=== PATIENT | male | born 1985 | race Hispanic/Latino ===

== ENCOUNTER 2017-11-20 19:00 | Emergency (ER) | payer SELFPAY ==
[2017-11-20] MEDS ORDERED: FAMOTIDINE 20 MG/2 ML VIAL IV ONE (19:31)
[2017-11-20 19:48] LABS: Absolute Lymphocytes (CBC) 2.9 K/uL (0.7-4.9); Absolute Monocytes 0.8 K/uL (0.1-1.3); Absolute Neutrophil 5.9 K/uL (1.8-8.0); Basophils % 0.8 % (0-1.3); Eosinophils % 2.5 % (0-4.4); Hematocrit 46.7 % (39.6-49.0); Lymphocytes % 29.3 % (15.3-44.8); MCH 31.1 pg (27.0-35.0); MCV 89.9 fL (80-100); MPV 7.9 fL (7.6-11.3); Monocytes % 7.9 % (3.3-12.3)
[2017-11-20 19:58] LABS: Protime INR 0.93
[2017-11-20 20:16] LABS: Albumin 3.8 g/dL (3.4-5.0); Bilirubin Direct 0.1 mg/dL (0-0.2); Bilirubin Total 0.4 mg/dL (0.2-1.0); Magnesium 2.2 mg/dL (1.8-2.4); Potassium 3.6 mmol/L (3.5-5.1); Protein, Total 7.6 g/dL (6.4-8.2)
--- NOTE | 2017-11-20 20:37 | ER ---
Nurse's Notes [facility] Name: Brian Zuniga Jr Age: 32 yrs Sex: Male : 1985 Arrival Date: 11/20/2017 Time: 19:05 Bed 7 Private MD: Out, [facility] Diagnosis: Chest pain, unspecified Presentation: 11/20 19:16 Presenting complaint: Patient states: he has been having int CP x 3 days. States, "My aa1 girlfriend is and I've been having the vomiting with her and I'm not sure if it's from that or not.". Transition of care: patient was not received from another setting of care. Onset of symptoms was November 18, 2017. Risk Assessment: Do you want to hurt yourself or someone else? Patient reports no desire to harm self or others. Initial Sepsis Screen: Does the patient meet any 2 criteria? No. Patient's initial sepsis screen is negative. Does the patient have a suspected source of infection? No. Patient's initial sepsis screen is negative. Care prior to arrival: None. 19:16 Method Of Arrival: Ambulatory aa1 19:16 Acuity: MARTY 3 aa1 Historical: - Allergies: 19:18 No Known Allergies; aa1 - Home Meds: 19:18 None [Active]; aa1 - PMHx: 19:18 None; aa1 - PSHx: 19:18 None; aa1 - Immunization history:: Flu vaccine is not up to date. - Social history:: Smoking status: Patient uses tobacco products, smokes one-half pack cigarettes per day. - Ebola Screening: : No symptoms or risks identified at this time. Screenin:19 Abuse screen: Denies threats or abuse. Denies injuries from another. Nutritional aa1 screening: No deficits noted. Tuberculosis screening: No symptoms or risk factors identified. Fall Risk None identified. Assessment: 19:19 General: Appears in no apparent distress. comfortable, Behavior is calm, cooperative, aa1 appropriate for age. Pain: Complains of pain in chest Pain does not radiate. Pain currently is 0 out of 10 on a pain scale. at worst was 5 out of 10 on a pain scale. Quality of pain is described as heavy, Pain began 2-3 days ago. Is intermittent. Neuro: Level of Consciousness is awake, alert, obeys commands, Oriented to person, place, time, situation, Moves all extremities. Full function Gait is steady. Cardiovascular: Heart tones S1 S2 present Rhythm is regular. Cardiovascular: Reports chest pain, vomiting, Denies diaphoresis, lightheadedness, palpitations, shortness of breath, Capillary refill < 3 seconds Clubbing of nail beds is absent JVD is absent Patient's skin is warm and dry. Chest pain is described as vague, quality is heaviness, is located in anterior chest wall episodes are intermittent. Respiratory: Airway is patent Respiratory effort is even, unlabored, Respiratory pattern is regular, symmetrical. GI: Abd is soft and non tender X 4 quads. Reports nausea, vomiting. : No signs and/or symptoms were reported regarding the genitourinary system. EENT: No signs and/or symptoms were reported regarding the EENT system. Derm: Skin is intact, is healthy with good turgor, Skin is pink, warm \\T\\ dry. 20:55 Reassessment: Patient and/or family updated on plan of care and expected duration. Pain ea level reassessed. Patient is alert, oriented x 3, equal unlabored respirations, skin warm/dry/pink. Discharge instructions given to patient, verbalized the understanding of instruction. Patient denies pain at this time. Patient states feeling better. Patient states symptoms have improved. Vital Signs: 19:18 BP 155 / 109; Pulse 97; Resp 18; Temp 98.1; Pulse Ox 99% on R/A; Weight 81.19 kg; aa1 Height 5 ft. 11 in. (180.34 cm); Pain 0/10; 19:43 BP 140 / 92; Pulse 91; Resp 16; Pulse Ox 97% on R/A; aa1 20:30 BP 122 / 82; Pulse 88; Resp 18; Temp 98; Pulse Ox 100% on R/A; Pain 0/10; ea 19:18 Body Mass Index 24.97 (81.19 kg, 180.34 cm) aa1 ED Course: 19:05 Patient arrived in ED. sb2 19:06 Out, [facility] is Private Physician. sb2 19:10 Aj Dominguez NP is PHCP. pm1 19:11 Leon Meraz MD is Attending Physician. pm1 19:16 Amanda Hassan RN is Primary Nurse. aa1 19:18 Triage completed. aa1 19:18 Arm band placed on right wrist. Patient placed in an exam room, on a stretcher. aa1 19:19 Patient has correct armband on for positive identification. Placed in gown. Bed in low aa1 position. Call light in reach. groundwater monitoring technician on. Pulse ox on. NIBP on. 19:19 EKG done, by ED staff, reviewed by Leon Meraz MD. Patient maintains SpO2 saturation aa1 greater than 95% on room air. 19:40 Inserted saline lock: 20 gauge in right antecubital area, using aseptic technique. mw2 Blood collected. 19:42 X-ray completed. Portable x-ray completed in exam room. Patient tolerated procedure mh1 well. 19:42 XRAY Chest (1 view) In Process Unspecified. EDMS 20:54 No provider procedures requiring assistance completed. IV discontinued, intact, ea bleeding controlled, No redness/swelling at site. Pressure dressing applied. Administered Medications: 19:43 Drug: Pepcid 20 mg Route: IVP; Site: right antecubital; aa1 20:39 Follow up: Response: No adverse reaction ea Outcome: 20:36 Discharge ordered by MD. pm1 20:55 Discharged to home ambulatory. ea 20:55 Condition: improved 20:55 Discharge instructions given to patient, Instructed on discharge instructions, follow up and referral plans. medication usage, Demonstrated understanding of instructions, follow-up care, medications. 20:57 Patient left the ED. ea Signatures: Dispatcher [employer] EDMS Amanda Hassan RN RN aa1 Heide Muñoz 1 Aj Dominguez, JOSIAS PRODUCTION DRILLING MACHINE OPERATOR pm1 Nancy Hernandez RN RN ea Billeau, Sheri 2 Konrad Gandhi mw2
--- NOTE | 2017-11-20 20:37 | EDPHYS ---
Physician Documentation [facility] Name: Brian Zuniga Jr Age: 32 yrs Sex: Male : 1985 Arrival Date: 11/20/2017 Time: 19:05 Bed 7 Private MD: Out, [facility] ED Physician Leon Meraz HPI: 11/20 20:00 This 32 yrs old Male presents to ER via Ambulatory with complaints of Chest pm1 Pain. 20:00 The patient or guardian reports chest pain that is located primarily in the epigastric pm1 area. The pain does not radiate. Associated signs and symptoms: Pertinent positives: nausea, vomiting, Pertinent negatives: abdominal pain, cough, dizziness, headache, shortness of breath. The chest pain is described as burning. Duration: The patient or guardian reports a single episode, that is still ongoing. Modifying factors: The symptoms are alleviated by nothing. the symptoms are aggravated by eating. Severity of pain: in the emergency department the pain is unchanged. The patient has not experienced similar symptoms in the past. The patient has not recently seen a physician. Patient with onset of chest pain 2 days ago. Patient's girlfriend is and he feels that he is having symptahy. Historical: - Allergies: 19:18 No Known Allergies; aa1 - Home Meds: 19:18 None [Active]; aa1 - PMHx: 19:18 None; aa1 - PSHx: 19:18 None; aa1 - Immunization history:: Flu vaccine is not up to date. - Social history:: Smoking status: Patient uses tobacco products, smokes one-half pack cigarettes per day. - Ebola Screening: : No symptoms or risks identified at this time. ROS: 20:00 Constitutional: Negative for fever, chills, and weight loss, Eyes: Negative for injury, pm1 pain, redness, and discharge, ENT: Negative for injury, pain, and discharge, Neck: Negative for injury, pain, and swelling, Respiratory: Negative for shortness of breath, cough, wheezing, and pleuritic chest pain. 20:00 Abdomen/GI: Negative for abdominal pain, nausea, vomiting, diarrhea, and constipation, Back: Negative for injury and pain, MS/Extremity: Negative for injury and deformity, Skin: Negative for injury, rash, and discoloration, Neuro: Negative for headache, weakness, numbness, tingling, and seizure. 20:00 Cardiovascular: Positive for chest pain, Negative for edema, orthopnea, palpitations. Exam: 20:00 Constitutional: This is a well developed, well nourished patient who is awake, alert, pm1 and in no acute distress. Head/Face: Normocephalic, atraumatic. Eyes: Pupils equal round and reactive to light, extra-ocular motions intact. Lids and lashes normal. Conjunctiva and sclera are non-icteric and not injected. Cornea within normal limits. Periorbital areas with no swelling, redness, or edema. ENT: Nares patent. No nasal discharge, no septal abnormalities noted. Tympanic membranes are normal and external auditory canals are clear. Oropharynx with no redness, swelling, or masses, exudates, or evidence of obstruction, uvula midline. Mucous membranes moist. Neck: Trachea midline, no thyromegaly or masses palpated, and no cervical lymphadenopathy. Supple, full range of motion without nuchal rigidity, or vertebral point tenderness. No Meningismus. Chest/axilla: Normal chest wall appearance and motion. Nontender with no deformity. No lesions are appreciated. Cardiovascular: Regular rate and rhythm with a normal S1 and S2. No gallops, murmurs, or rubs. Normal PMI, no JVD. No pulse deficits. Respiratory: Lungs have equal breath sounds bilaterally, clear to auscultation and percussion. No rales, rhonchi or wheezes noted. No increased work of breathing, no retractions or nasal flaring. Abdomen/GI: Soft, non-tender, with normal bowel sounds. No distension or tympany. No guarding or rebound. No evidence of tenderness throughout. Back: No spinal tenderness. No costovertebral tenderness. Full range of motion. Skin: Warm, dry with normal turgor. Normal color with no rashes, no lesions, and no evidence of cellulitis. MS/ Extremity: Pulses equal, no cyanosis. Neurovascular intact. Full, normal range of motion. 20:00 Neuro: Orientation: is normal, Motor: moves all fours, strength is normal, Sensation: is normal, no obvious gross deficits, Gait: is steady, at a normal pace, without difficulty. Vital Signs: 19:18 BP 155 / 109; Pulse 97; Resp 18; Temp 98.1; Pulse Ox 99% on R/A; Weight 81.19 kg; aa1 Height 5 ft. 11 in. (180.34 cm); Pain 0/10; 19:43 BP 140 / 92; Pulse 91; Resp 16; Pulse Ox 97% on R/A; aa1 20:30 BP 122 / 82; Pulse 88; Resp 18; Temp 98; Pulse Ox 100% on R/A; Pain 0/10; ea 19:18 Body Mass Index 24.97 (81.19 kg, 180.34 cm) aa1 MDM: 19:11 Patient medically screened. pm1 20:35 Data reviewed: vital signs. Data interpreted: Pulse oximetry: on room air is 97 %. pm1 Interpretation: normal. Counseling: I had a detailed discussion with the patient and/or guardian regarding: the historical points, exam findings, and any diagnostic results supporting the discharge/admit diagnosis, lab results, radiology results, the need for outpatient follow up, to return to the emergency department if symptoms worsen or persist or if there are any questions or concerns that arise at home. 11/20 19:16 Order name: Basic Metabolic Panel; Complete Time: 20:33 pm11/20 19:16 Order name: CBC with Diff; Complete Time: 20:33 pm11/20 19:16 Order name: LFT's; Complete Time: 20:33 pm11/20 19:16 Order name: Magnesium; Complete Time: 20:33 pm11/20 19:16 Order name: PT-INR; Complete Time: 20:33 pm11/20 19:16 Order name: Ptt, Activated; Complete Time: 20:33 pm11/20 19:16 Order name: Troponin (emerg Dept Use Only); Complete Time: 20:33 pm11/20 19:16 Order name: XRAY Chest (1 view); Complete Time: 20:54 pm1 11/20 19:16 Order name: EKG; Complete Time: 19:16 pm11/20 19:16 Order name: Cardiac monitoring; Complete Time: 19:23 pm11/20 19:16 Order name: EKG - Nurse/Tech; Complete Time: 19:23 pm11/20 19:16 Order name: IV Saline Lock; Complete Time: 19:25 pm11/20 19:16 Order name: Labs collected and sent; Complete Time: 19:25 pm1 11/20 19:16 Order name: O2 Per Protocol; Complete Time: 19:25 pm1 11/20 19:16 Order name: O2 Sat Monitoring; Complete Time: 19:26 pm1 Administered Medications: 19:43 Drug: Pepcid 20 mg Route: IVP; Site: right antecubital; aa1 20:39 Follow up: Response: No adverse reaction ea Disposition: 21:00 Co-signature as Attending Physician, Leon Meraz MD. ayanna Disposition: 11/20/17 20:36 Discharged to Home. Impression: Chest pain, unspecified. - Condition is Stable. - Discharge Instructions: Nonspecific Chest Pain. - Prescriptions for Pepcid 20 mg Oral Tablet - take 1 tablet by ORAL route every 12 hours for 10 days; 20 tablet. - Medication Reconciliation Form, Thank You Letter form. - Follow up: Emergency Department; When: As needed; Reason: Worsening of condition. Follow up: Private Physician; When: 2 - 3 days; Reason: Recheck today's complaints, Continuance of care, Re-evaluation by your physician. - Problem is new. - Symptoms have improved. Signatures: Dispatcher [employer] EDAmanda Waggoner RN RN aa1 Leon Meraz MD MD pkAj Gomez, JOSIAS PROGRAM COUNSELOR pm1 Nancy Hernandez RN RN albaro Corrections: (The following items were deleted from the chart) 20:57 20:36 11/20/2017 20:36 Discharged to Home. Impression: Chest pain, unspecified. ea Condition is Stable. Forms are Medication Reconciliation Form, Thank You Letter, Antibiotic Education, Prescription Opioid Use. Follow up: Emergency Department; When: As needed; Reason: Worsening of condition. Follow up: Private Physician; When: 2 - 3 days; Reason: Recheck today's complaints, Continuance of care, Re-evaluation by your physician. Problem is new. Symptoms have improved. pm1
--- NOTE | 2017-11-20 20:47 | RAD REPORT ---
EXAM DESCRIPTION: RAD - Chest Single View - 11/20/2017 7:42 pm CLINICAL HISTORY: Chest pain COMPARISON: None. TECHNIQUE: AP portable chest image was obtained 1937 hours . FINDINGS: Lungs are clear. Heart and vasculature are normal. No measurable pleural effusion and no p neumothorax. No gross bony abnormality seen. No acute aortic findings suspected. IMPRESSION: No acute cardiopulmonary process.
--- NOTE | 2017-11-21 09:39 | EKG ---
Test Date: 2017-11-20 Test Time: 19:15:45 Certified Breastfeeding Educator: CLAUDIO MEASUREMENT RESULTS: Intervals: Rate: 93 UT: 160 QRSD: 90 QT: 342 QTc: 425 [place]: P: 73 UT: 160 QRS: 16 T: 51 INTERPRETIVE STATEMENTS: Normal sinus rhythm Normal ECG No previous ECG available for comparison Electronically Signed On 11-21-17 09:38:34 CDT by Patrick Trujillo
== END 2017-11-20 20:57 | disposition home or self-care (01) ==
LOC: ER 19:00
DX: R07.9 Chest pain, unspecified (principal)
CPT/HCPCS: 36415; 71045; 80048; 80076; 83735; 84484; 85025; 85610; 85730; 93005; 96374; 99285